=== PATIENT | male | born 1975 | race Caucasian/White ===

== ENCOUNTER 2020-08-07 20:45 | Emergency (ER) | payer OTHER, BC, SELFPAY ==
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
[2020-08-07 20:48] VITALS: BP 149/86; PULSE 82; RESP 18; TEMP 36.6; O2SAT 98
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
[2020-08-07] MEDS: oxyCODONE/ACETAMINOPHEN (*CRX) 5-325 MG TABLET 1 TABLET PO (22:09)
--- NOTE | 2020-08-07 22:10 | PC.NURSE ---
talking on cell phone. pain medication given as ordered. as order for CT.
--- NOTE | 2020-08-07 22:30 | PC.NURSE ---
patient back from radiology
== END 2020-08-07 23:02 | disposition home or self-care (01) ==
PROVIDERS: Emergency Provider Emergency Medicine; PCP Family Medicine
DX: S13.4XXA Sprain of ligaments of cervical spine, initial encounter (principal); M47.812 Spondylosis without myelopathy or radiculopathy, cervical region; V53.5XXA Driver of pick-up truck or van injured in collision with car, pick-up truck or van in traffic accident, initial encounter
CPT/HCPCS: 72125; 99284; A9270